=== PATIENT | male | born 1940 | race Caucasian/White ===

== ENCOUNTER 2022-08-29 12:15 | Inpatient (IN) | payer MEDICARE, OTHER ==
[~2022-08-29] VITALS: Ht 167.6 cm; Wt 67.4 kg
[2022-08-29 12:49] LABS: BASOPHILS % (AUTO) 0.5 % (0-1); EOSINOPHILS % (AUTO) 0.4 % (0-6); HEMATOCRIT 51.2 % (42.0-52.0); HEMOGLOBIN 17.2 g/dl (14.0-17.9); LYMPHOCYTES % (AUTO) 12.1 % (21-51); MEAN CORPUSCULAR HEMOGLOBIN 32.8 PG (27.0-31.0); MEAN CORPUSCULAR HGB CONC 33.7 g/dL (33.0-36.5); MEAN CORPUSCULAR VOLUME 97.4 FL (78-98); MEAN PLATELET VOLUME 7.6 FL (7.4-10.4); MONOCYTES # (AUTO) 0.8 X10'3 (0-0.9); MONOCYTES % (AUTO) 9.8 % (2-12); NEUTROPHILS # (AUTO) 6.3 X10'3 (1.8-7.7); NEUTROPHILS % (AUTO) 77.2 % (42-75); PLATELET COUNT 250 X10'3 (140-440); RED BLOOD COUNT 5.25 X10'6 (4.70-6.10); RED CELL DISTRIBUTION WIDTH 13.5 % (11.5-14.5); WHITE BLOOD COUNT 8.2 X10'3 (4.5-11.0)
--- NOTE | 2022-08-29 12:52 | NUR ---
pt off to ct
[2022-08-29 13:04] LABS: ALANINE AMINOTRANSFERASE 23 U/L (12-78); ALBUMIN 4.3 G/DL (3.4-5.0); ALBUMIN/GLOBULIN RATIO 1.4 (1.1-1.5); ALKALINE PHOSPHATASE 133 IU/L (46-116); ANION GAP 5 (8-16); ASPARTATE AMINO TRANSFERASE 27 U/L (10-37); BILIRUBIN,TOTAL 0.7 MG/DL (0.1-1.0); BLOOD UREA NITROGEN 19 MG/DL (7-18); CALCIUM 10.4 MG/DL (8.5-10.1); CHLORIDE 104 MMOL/L (99-107); GLUCOSE 115 MG/DL (70-104); MAGNESIUM 2.3 MG/DL (1.5-2.4); POTASSIUM 4.5 MMOL/L (3.5-5.1); SODIUM 137 MMOL/L (135-145); TOTAL CARBON DIOXIDE 27.6 MMOL/L (24-32); TOTAL PROTEIN 7.4 G/DL (6.4-8.2); eGFR 72 ML/MIN
[2022-08-29 13:11] LABS: APTT 33 SECONDS (22-32)
[2022-08-29] MEDS ORDERED: iohexol 350MG/ML 100ml bottle IV ONE (14:21)
[2022-08-29] MEDS ORDERED: aspirin 325mg tablet PO ONE (14:45)
[2022-08-29] MEDS ORDERED: XAL0.005OS EACHEYE (15:24)
[2022-08-29] MEDS ORDERED: LISI1TAB49 PO (15:24)
[2022-08-29] MEDS ORDERED: mag hydrox/Alum hydrox/simeth 30ml oral suspension PO PRN (16:10)
[2022-08-29] MEDS ORDERED: morphine 2 MG/ML inj. syringe IV PRN ×2 (16:10)
[2022-08-29] MEDS ORDERED: magnesium hydroxide 30ml (MOM) UD suspension PO PRN (16:10)
[2022-08-29] MEDS ORDERED: acetaminophen 325mg tablet PO PRN ×2 (16:10)
[2022-08-29] MEDS ORDERED: ondansetron/PF 4mg/2ml inj IV PRN (16:10)
[2022-08-29 17:04] LABS: CHOL/HDL RATIO 4.2 (0.00-4.99); CHOLESTEROL 189 MG/DL (0-200); HDL CHOLESTEROL 45 MG/DL (35-60); LDL CHOLESTEROL 125 MG/DL (50-100); TRIGLYCERIDES 94 MG/DL (20-135)
--- NOTE | 2022-08-29 17:23 | NUR ---
pt back from [facility]
--- NOTE | 2022-08-29 18:15 | NUR ---
pt's family at bedside. water and masks given to pt and pt's son.
[2022-08-29] MEDS: docusate sod 100mg capsule PO SCH (20:00)
[2022-08-29] MEDS ORDERED: latanoprost 0.005% 2.5ml ophthalmic drops EACHEYE SCH (21:00)
[2022-08-29 23:53] VITALS: BP 138/53
--- NOTE | 2022-08-30 00:13 | NUR ---
Received from ER in fair condition, No c/o pain, discomfort or numbness. No Neuro deficits noted. Able to read and draw conclusions. Able to describe events leading to admission. Peripheral SL intact. Able to void per urinal.
[2022-08-30 02:52] VITALS: BP 144/61
--- NOTE | 2022-08-30 04:45 | NUR ---
Assisted to BR gaits steady and stable. Tolerating po fluids no c/o numbness or pain.
[2022-08-30] MEDS ORDERED: clopidogrel 300mg tablet PO ONE (05:35)
[2022-08-30 06:43] LABS: BASOPHILS % (AUTO) 0.5 % (0-1); EOSINOPHILS # (AUTO) 0.1 X10'3 (0-0.9); EOSINOPHILS % (AUTO) 1.4 % (0-6); HEMATOCRIT 49.5 % (42.0-52.0); HEMOGLOBIN 17.1 g/dl (14.0-17.9); LYMPHOCYTES # (AUTO) 1.1 X10'3 (1.1-4.8); LYMPHOCYTES % (AUTO) 13.9 % (21-51); MEAN CORPUSCULAR HEMOGLOBIN 33.2 PG (27.0-31.0); MEAN CORPUSCULAR HGB CONC 34.5 g/dL (33.0-36.5); MEAN CORPUSCULAR VOLUME 96.4 FL (78-98); MEAN PLATELET VOLUME 7.2 FL (7.4-10.4); MONOCYTES # (AUTO) 0.9 X10'3 (0-0.9); NEUTROPHILS % (AUTO) 73.2 % (42-75); PLATELET COUNT 221 X10'3 (140-440); RED BLOOD COUNT 5.13 X10'6 (4.70-6.10); RED CELL DISTRIBUTION WIDTH 13.2 % (11.5-14.5); WHITE BLOOD COUNT 8.2 X10'3 (4.5-11.0)
--- NOTE | 2022-08-30 06:46 | NUR ---
Patient in room PCU 3013. I have received report from Ariana and had the opportunity to ask questions and assume patient care.
[2022-08-30 06:54] LABS: ALBUMIN 3.8 G/DL (3.4-5.0); ANION GAP 8 (8-16); BLOOD UREA NITROGEN 18 MG/DL (7-18); BUN/CREATININE RATIO 19.1 (5.4-32.0); CALCIUM 9.5 MG/DL (8.5-10.1); CHLORIDE 103 MMOL/L (99-107); CREATININE 0.94 MG/DL (0.60-1.10); GLUCOSE 114 MG/DL (70-104); POTASSIUM 4.5 MMOL/L (3.5-5.1); SODIUM 138 MMOL/L (135-145); TOTAL CARBON DIOXIDE 27.2 MMOL/L (24-32); eGFR 77 ML/MIN
[2022-08-30 07:00] VITALS: BP 105/69
[2022-08-30] MEDS ORDERED: lisinopril 10 MG tablet PO SCH (08:00)
[2022-08-30] MEDS ORDERED: HYDROchlorothiazide 12.5mg capsule PO SCH (08:00)
[2022-08-30] MEDS ORDERED: aspirin 81mg, enteric-coated 1 TAB TABLET.DR PO SCH (08:00)
[2022-08-30] MEDS: docusate sod 100mg capsule PO SCH (08:00)
[2022-08-30] MEDS ORDERED: ATOR20TA PO (08:05)
[2022-08-30] MEDS ORDERED: CLOP-32 PO (08:05)
[2022-08-30] MEDS ORDERED: ASPI-1071 PO (08:05)
[2022-08-30 08:13] VITALS: BP 159/72
[2022-08-30 08:14] VITALS: BP_SYST 159
--- NOTE | 2022-08-30 11:34 | NUR ---
Reviewed discharge instructions with patient. patient verbalized understanding. Patient is alert, oriented and expresses a readiness to discharge home. Patient was able to dress himself, gather his belongings and was wheeled downstairs to be driven home by his .
== END 2022-08-30 11:15 | disposition home or self-care (01) | DRG 66 ==
LOC: ER 12:16 → ED HOLD 16:16 → PCU 3S 23:10
PROVIDERS: ADMIT Internal Medicine; ATTEND Internal Medicine
PROC: B3251ZZ Computerized Tomography (CT Scan) of Bilateral Common Carotid Arteries using Low Osmolar Contrast (ICD-10-PCS; principal; 2022-08-29)
PROC: B32G1ZZ Computerized Tomography (CT Scan) of Bilateral Vertebral Arteries using Low Osmolar Contrast (ICD-10-PCS; 2022-08-29)
PROC: B32R1ZZ Computerized Tomography (CT Scan) of Intracranial Arteries using Low Osmolar Contrast (ICD-10-PCS; 2022-08-29)
PROC: B3281ZZ Computerized Tomography (CT Scan) of Bilateral Internal Carotid Arteries using Low Osmolar Contrast (ICD-10-PCS; 2022-08-29)
DX: I63.9 Cerebral infarction, unspecified (principal); I10 Essential (primary) hypertension; I65.23 Occlusion and stenosis of bilateral carotid arteries; G83.21 Monoplegia of upper limb affecting right dominant side; Z79.02 Long term (current) use of antithrombotics/antiplatelets; Z79.899 Other long term (current) drug therapy
CPT/HCPCS: 36415; 70450; 70496; 70498; 70551; 71045; 80048; 80053; 80061; 82948; 83735; 83880; 84484; 85025; 85610; 85651; 85730; 87081; 93005; 93306; 99285; G0378; J3490; Q9967

== ENCOUNTER 2024-07-14 14:08 | Emergency (ER) | payer MEDICARE, OTHER ==
[~2024-07-14] VITALS: Ht 165.1 cm; Wt 62.4 kg
[~2024-07-14 14:08] MED LIST: ASPI-1071 PO; ATOR20TA PO; CLOP-32 PO; LISI1TAB49 PO; XAL0.005OS EACHEYE
[2024-07-14 16:08] VITALS: BP 129/55; PULSE 60; RESP 16; TEMP 97.9; O2SAT 97
== END 2024-07-14 16:11 | disposition home or self-care (01) ==
LOC: ER 14:08
DX: S09.8XXA Other specified injuries of head, initial encounter (principal); I10 Essential (primary) hypertension; Z79.82 Long term (current) use of aspirin; Z79.899 Other long term (current) drug therapy; W01.0XXA Fall on same level from slipping, tripping and stumbling without subsequent striking against object, initial encounter; Y93.89 Activity, other specified; Y92.89 Other specified places as the place of occurrence of the external cause; Y99.8 Other external cause status
CPT/HCPCS: 70450; 72125; 99284